=== PATIENT | male | born 1945 | race Caucasian/White ===

== ENCOUNTER 2020-04-14 06:50 | Day surgery (SDC) | payer OTHER ==
[~2020-04-14] VITALS: Ht 182.9 cm; Wt 111.4 kg
[~2020-04-14 06:50] MED LIST: AMLODIPINE BESYL5 MG PO; BAYER CHEWABLE81 MG PO; CHLOROPHYLL 201 EACH PO; FISH OIL + D31 EACH PO; ISOSORBIDE MON120 MG PO; LAMICTAL100 MG PO; MELATIN3 MG PO; METOPROLOL TART25 MG PO; MIXED TOCOTRIE1 EACH PO; MSM1000 MG PO; MULTI VITAMIN1 EACH PO; PRALUENT P75 MG/1 ML SQ; ZESTRIL5 MG PO
--- NOTE | 2020-04-14 08:49 | NUR ---
04/14/20 0849 Sheets,Ivonne 08 PT ARRIVED TO PACU WITH ORAL AIRWAY ON PLACE, RESP EVEN AND UNLABROED LAYING ON LEFT SIDE. VSS. ABD SOFT.
--- NOTE | 2020-04-14 10:24 | OR ---
[facility] [address], [place] [address] Signed DATE OF OPERATION: 04/14/2020 SURGEON: Villa Bustamante MD PREOPERATIVE DIAGNOSES: 1. Personal history of colonic polyps 2016. 2. Negative colonoscopy 2001. POSTOPERATIVE DIAGNOSES: 1. 5 mm polyp proximal transverse colon. 2. Minimal internal hemorrhoids. PROCEDURE: Colonoscopy with hot biopsy. ESTIMATED BLOOD LOSS: None. INDICATIONS: Debi is a 74-year-old gentleman, asked to see me for a followup colonoscopy. He had a negative colonoscopy back in 2001. He then had three adenomatous polyps removed in 2017 [facility]. He was asked to return in three years. He said he has no lower GI complaints. He is adopted and has no knowledge of his family history. Because of his significant medical history including his history of atrial fibrillation and flutter requiring cardiac ablation, we did ask an anesthesia provider to help with increased monitoring and sedation with propofol. In the office, I had given Debi and his a pamphlet on colonoscopy. We had reviewed that together in detail. They understand the nature of the test along with the risks including, but not limited to gas bloating, crampy abdominal pain, bleeding, perforation requiring surgery, and missed diagnosis. They also understands the need for IV conscious sedation as described above. They had expressed understanding and wished to proceed. DESCRIPTION OF PROCEDURE: Debi was taken into our endoscopy suite and placed in the left lateral decubitus position. He was given IV sedation with propofol per our nurse credit authorizer. A digital rectal exam was performed. With the propofol infusion, he had very little sphincter tone. The prostate gland was moderately enlarged and indurated. No dominant nodule. The adult colonoscope was introduced and advanced all around into the cecum under direct visualization of the camera without difficulty. His prep was quite good. We could easily see his appendiceal orifice and the ileocecal valve. The scope was then slowly Electronically Signed By: VILLA BUSTAMANTE MD 04/14/20 1024 PATIENT NAME: DEBI PALAFOX OPERATIVE REPORT DATE OF : 41 REPORT #: [id number] PHYSICIAN: VILLA BUSTAMANTE MD PCP: NO PRIMARY CARE PHYSICIAN REPORT IS CONFIDENTIAL AND NOT TO BE RELEASED WITHOUT AUTHORIZATION [facility] [address], [place] [address] Signed withdrawn. We took pictures throughout for photodocumentation. We discovered a small 4-5 mm polyp in the proximal transverse colon. It was easily biopsied and destroyed completely with the hot biopsy forceps. There was no diverticulosis. The rest of the colon and rectum were unremarkable. Upon retroflexion of scope, he did have minimal to moderate internal hemorrhoid columns. After this, the gas was suctioned out and the colonoscope removed. Debi tolerated the procedure quite well. RECOMMENDATIONS: I will see Debi back in my office in 7 to 14 days to review his results. Villa Bustamante MD ALB/JENNIFERL /[id number] cc: [facility] Villa Bustamante MD Copies: VILLA BUSTAMANTE MD ~ Electronically Signed By: VILLA BUSTAMANTE MD 04/14/20 1024 PATIENT NAME: DEBI PALAFOX JOSEFINA OPERATIVE REPORT DATE OF : 41 REPORT #: [id number] PHYSICIAN: VILLA BUSTAMANTE MD PCP: NO PRIMARY CARE PHYSICIAN REPORT IS CONFIDENTIAL AND NOT TO BE RELEASED WITHOUT AUTHORIZATION
== END 2020-04-14 09:15 | disposition home or self-care (01) ==
LOC: DS 06:50 → OPS 06:50
PROVIDERS: ATTEND Colon & Rectal Surgery
DX: Z12.11 Encounter for screening for malignant neoplasm of colon (principal); K63.5 Polyp of colon; K64.8 Other hemorrhoids; I25.10 Atherosclerotic heart disease of native coronary artery without angina pectoris; I10 Essential (primary) hypertension; E78.5 Hyperlipidemia, unspecified; I48.92 Unspecified atrial flutter; I48.91 Unspecified atrial fibrillation; G47.39 Other sleep apnea; H35.3290 Exudative age-related macular degeneration, unspecified eye, stage unspecified; E66.01 Morbid (severe) obesity due to excess calories; Z68.34 Body mass index [BMI] 34.0-34.9, adult; Z79.82 Long term (current) use of aspirin; Z95.5 Presence of coronary angioplasty implant and graft; Z88.8 Allergy status to other drugs, medicaments and biological substances; Z91.048 Other nonmedicinal substance allergy status; Z86.010 Personal history of colon polyps
CPT/HCPCS: 88305; J2704; J7121